=== PATIENT | female | born 1955 | race Caucasian/White ===

== ENCOUNTER 2016-09-14 06:05 | Day surgery (SDC) | payer BC ==
[~2016-09-14] VITALS: Ht 170.2 cm; Wt 117.6 kg
--- OUTSIDE RECORDS SUMMARY | 2016-09-14 06:09 | XMS REPORT | Referral Summary ---
Author Author [facility] Organization [facility] Address Unknown Phone Unavailable Care Team Providers Care Winch Operator Name Role Phone Yovany Urena Primary Care Physician [phone] Encounter VC Date(s): 06/29/16 - 06/29/16 [facility] [address] [place] [id number] Discharge Diagnosis: Keratosis, inflamed seborrheic Discharge Diagnosis: Well woman exam with routine gynecological exam Discharge Diagnosis: Elevated blood pressure reading without diagnosis of hypertension Discharge Diagnosis: Borderline hyperlipidemia Discharge Diagnosis: Borderline hyperglycemia Discharge Disposition: 01-Home or Self Care Attending Physician: Wanda Urena DO Admitting Physician: Wanda Urena DO Vital Signs Most recent to 1 oldest [Reference Range]: Temperature Tympanic 36.0 degC [36.6-38.1 degC] *LOW* (06/29/16 9:10 AM) Peripheral Pulse 89 bpm Rate [60-100 bpm] (06/29/16 9:10 AM) Blood Pressure 138/92 mmHg [90-140/60-90 mmHg] (06/29/16 9:10 AM) SpO2 98 % (06/29/16 9:10 AM) Problem List Condition Effective Dates Status Health Status Informant Elevated blood Active pressure reading without diagnosis of hypertension(Confirm ed) Borderline Active hyperglycemia(Confir med) Borderline Active hyperlipidemia(Confi rmed) Morbid Active patient obesity(Confirmed) Rosacea(Confirmed) Active Allergies, Adverse Reactions, Alerts No Known Medication Allergies Medications Flax Oil 0 Refill(s) Start Date: 05/04/16 Status: Ordered multivitamin 1 tabs, Oral, Daily Start Date: 10/23/15 Status: Ordered [place]-3 oral capsule 0 Refill(s) Start Date: 05/04/16 Status: Ordered triamcinolone 0.5% topical cream 1 yue, Topical, BID, Rash, apply to ears, # 20 g, 3 Refill(s), Pharmacy: [facility] #[id number] Start Date: 05/04/16 Stop Date: 05/04/17 Status: Ordered Vitamin C 500 mg oral tablet 1,000 mg 2 tabs, Oral, Daily Start Date: 10/23/15 Status: Ordered Results No data available for this section Immunizations No data available for this section Procedures Procedure Date Related Diagnosis Body Site Destruction (eg, laser surgery, 06/29/16 electrosurgery, cryosurgery, chemosurgery, surgical curettement), of benign lesions other than skin tags or cutaneous vascular proliferative lesions; up to 14 lesions Social History Social History Type Response Smoking Status Never smoker Assessment and Plan Extracted from: Title: Ambulatory Patient Education Author: Wanda Urena DO Date: 06/29/16 Cardiovascular Fat and Cholesterol Restricted Diet Getting too much fat and cholesterol in your diet may cause health problems. Following this diet helps keep your fat and cholesterol at normal levels. This can keep you from getting sick. WHAT TYPES OF FAT SHOULD I CHOOSE? Choose monosaturated and polyunsaturated fats. These are found in foods such as olive oil, canola oil, flaxseeds, walnuts, almonds, and seeds. Eat more omega-3 fats. Good choices include salmon, mackerel, sardines, tuna, flaxseed oil, and ground flaxseeds. Limit saturated fats. These are in animal products such as meats, butter , and cream. They can also be in plant products such as palm oil, palm kernel oil, and coconut oil. Avoid foods with partially hydrogenated oils in them. These contain trans fats. Examples of foods that have trans fats are stick margarine, some tub margarines, cookies, crackers, and other baked goods. WHAT GENERAL GUIDELINES DO I NEED TO FOLLOW? Check food labels. Look for the words "trans fat" and "saturated fat." When preparing a meal: Fill half of your plate with vegetables and green salads. Fill one fourth of your plate with whole grains. Look for the word "whole " as the first word in the ingredient list. Fill one fourth of your plate with lean protein foods. Limit fruit to two servings a day. Choose fruit instead of juice. Eat more foods with soluble fiber. Examples of foods with this type of fiber are apples, broccoli, carrots, beans, peas, and barley. Try to get 20 30 g (grams) of fiber per day. Eat more home-cooked foods. Eat less at restaurants and buffets. Limit or avoid alcohol. Limit foods high in starch and sugar. Limit fried foods. Cook foods without frying them. Baking, boiling, grilling, and broiling are all great options. Lose weight if you are overweight. Losing even a small amount of weight can help your overall health. It can also help prevent diseases such as diabetes and heart disease. WHAT FOODS CAN I EAT? Grains Whole grains, such as whole wheat or whole grain breads, crackers, cereals, and pasta. Unsweetened oatmeal, bulgur, barley, quinoa, or brown rice. [place] or whole wheat flour tortillas. Vegetables Fresh or frozen vegetables (raw, steamed, roasted, or grilled). Green salads. Fruits All fresh, canned (in natural juice), or frozen fruits. Meat and Other Protein Products Ground beef (85% or leaner), grass-fed beef, or beef trimmed of fat. Skinless chicken or turkey. Ground chicken or turkey. Pork trimmed of fat. All fish and seafood. Eggs. Dried beans, peas, or lentils. Unsalted nuts or seeds. Unsalted canned or dry beans. Dairy Low-fat dairy products, such as skim or 1% milk, 2% or reduced-fat cheeses, low- fat ricotta or cottage cheese, or plain low-fat yogurt. Fats and Oils Tub margarines without trans fats. Light or reduced-fat mayonnaise and salad dressings. Avocado. [place], canola, sesame, or safflower oils. Natural peanut or almond butter (choose ones without added sugar and oil). The items listed above may not be a complete list of recommended foods or beverages. Contact your dietitian for more options. WHAT FOODS ARE NOT RECOMMENDED? Grains White bread. White pasta. White rice. Cornbread. Bagels, pastries, and croissants. Crackers that contain trans fat. Vegetables White potatoes. [place]. Creamed or fried vegetables. Vegetables in a cheese sauce. Fruits Dried fruits. Canned fruit in light or heavy syrup. Fruit juice. Meat and Other Protein Products Fatty cuts of meat. Ribs, chicken wings, bob, sausage, bologna, salami, chitterlings, fatback, hot dogs, bratwurst, and packaged luncheon meats. Liver and organ meats. Dairy Whole or 2% milk, cream, gson-ppg-bcqd, and cream cheese. Whole milk cheeses. Whole-fat or sweetened yogurt. Full-fat cheeses. Nondairy creamers and whipped toppings. Processed cheese, cheese spreads, or cheese curds. Sweets and Desserts [place] syrup, sugars, honey, and molasses. Candy. Jam and jelly. Syrup. Sweetened cereals. Cookies, pies, cakes, donuts, muffins, and ice cream. Fats and Oils Butter, stick margarine, lard, shortening, ghee, or bob fat. Coconut, palm kernel, or palm oils. Beverages Alcohol. Sweetened drinks (such as sodas, lemonade, and fruit drinks or punches) . The items listed above may not be a complete list of foods and beverages to avoid. Contact your dietitian for more information. This information is not intended to replace advice given to you by your health care provider. Make sure you discuss any questions you have with your health care provider. Document Released: 12/06/2012 Document Revised: 06/28/2015 Document Reviewed: [employer] Interactive Patient Education 2016 [employer] No follow up information was provided. Extracted from: Title: WWE Author: Wanda Urena DO Date: 06/29/16 Assessment/Plan Borderline hyperglycemia We discussed this patient would like to utilize therapeutic lifestyle changes, she'll return to clinic any years sooner with problems. Borderline hyperlipidemia We discussed this, we discussed her ASCVD risk score at 10 years would be 6 percent. She understands the consequences of not choosing a statin at this time and would instead like to work on therapeutic lifestyle changes, recheck in 1 year. Elevated blood pressure reading without diagnosis of hypertension Continue to monitor as her blood pressure is markedly improved from last reading. Keratosis, inflamed seborrheic Risks, benefits, alternatives of cryotherapy were discussed and verbal consent was obtained. The lesion mentioned abovewas treated utilizing a contact applicator and liquid nitrogen and 3 freeze thaw cycles. Wound care was discussed. Patient tolerated procedurewell. Return to clinic as needed. Ordered: Destruction, Of Flat Warts, Molluscum Contagiosum, Or Milia; Up To 14 Lesions 30575 Screening for human papillomavirus (HPV) Ordered: HPV HR, if positive reflex HPV Genotype Well woman exam with routine gynecological exam Exam and Pap with HPV testing today, we'll advise patient of results once available. Patient declines mammogram, colonoscopy form was provided to patient today. Ordered: Periodic Comp Preventive Med 40 to 64 years Est 04360
--- OUTSIDE RECORDS SUMMARY | 2016-09-14 06:09 | XMS REPORT | Referral Summary ---
Author Author [facility] Organization [facility] Address Unknown Phone Unavailable Care Team Providers Care Night Worker Name Role Phone Yovany Urena Primary Care Physician [phone] Encounter VC Date(s): 05/04/16 - 05/04/16 [facility] [address] [place] [id number] Discharge Diagnosis: Pressure in chest Discharge Diagnosis: Jaw pain Discharge Diagnosis: Blood pressure elevated without history of HTN Discharge Diagnosis: Adult hypothyroidism Discharge Disposition: 01-Home or Self Care Attending Physician: Wanda Urena DO Admitting Physician: Wanda Urena DO Vital Signs Most recent to 1 oldest [Reference Range]: Temperature Tympanic 36.6 degC [36.6-38.1 degC] (05/04/16 10:17 AM) Peripheral Pulse 89 bpm Rate [60-100 bpm] (05/04/16 10:17 AM) Blood Pressure 164/100 mmHg [90-140/60-90 mmHg] *HI* (05/04/16 10:17 AM) SpO2 97 % (05/04/16 10:17 AM) Problem List Condition Effective Dates Status Health Status Informant Morbid Active patient obesity(Confirmed) Rosacea(Confirmed) Active Allergies, Adverse Reactions, Alerts No Known Medication Allergies Medications Flax Oil 0 Refill(s) Start Date: 05/04/16 Status: Ordered multivitamin 1 tabs, Oral, Daily Start Date: 10/23/15 Status: Ordered [place]-3 oral capsule 0 Refill(s) Start Date: 05/04/16 Status: Ordered triamcinolone 0.5% topical cream 1 yue, Topical, BID, Rash, apply to ears, # 20 g, 3 Refill(s), Pharmacy: [facility] #[id number] Start Date: 05/04/16 Stop Date: 05/04/17 Status: Ordered Vitamin C 500 mg oral tablet 1,000 mg 2 tabs, Oral, Daily Start Date: 10/23/15 Status: Ordered Results No data available for this section Immunizations No data available for this section Procedures No data available for this section Social History Social History Type Response Smoking Status Never smoker Assessment and Plan Extracted from: Title: Office Visit Note Author: Wanda Urena DO Date: 05/04/16 Assessment/Plan Adult hypothyroidism TSH prior to next visit with further recommendations after results. This will have to be drawn at [facility] as patient must use [facility]. Ordered: Office Visit Level 4 Est 56923 Blood pressure elevated without history of HTN Recheck blood pressure was 160/92. Patient will return to clinic in 4-6 weeks for well woman exam and we will reevaluate at that time. Ordered: Office Visit Level 4 Est 32120 Jaw pain We will get a CMP with lab work to evaluate calcium, we discussed the possibility of TMJ, further recommendations after lab results. Ordered: Office Visit Level 4 Est 22439 Pressure in chest EKG was within normal limits, we discussed cardiology referral for further testing and patient will think about this. Ordered: Office Visit Level 4 Est 17662
[2016-09-14 06:19] VITALS: Ht 170.2 cm; Wt 117.6 kg
[2016-09-14 06:20] VITALS: BP 188/99; PULSE 79; RESP 16; TEMP 97.8; O2SAT 95
[2016-09-14 06:38] VITALS: BP 180/81
[2016-09-14] MEDS ORDERED: LIDOCAINE 1% (10mg/ml) 2ml SDV INJ ONE (07:00)
[2016-09-14] MEDS ORDERED: LR 1,000 ML IV SCH (07:00)
--- NOTE | 2016-09-14 07:26 | ANESPREOP ---
Anesthesia Record Date and Time DATE: 09/14/16 TIME: 07:24 Pre-Op Diagnosis hx of polyps Proposed Surgical Procedure COLONOSCOPY Allergies: Coded Allergies: No Known Drug Allergies (Verified Allergy, Unknown, 09/14/16) Ht/Wt/BMI Height: 5 ' 7.00 " Weight: 117.600 kg BMI: 40.6 kg/m2 Vital Signs Date Time Temp Pulse Resp B/P Pulse Ox O2 Delivery O2 Flow Rate FiO2 09/14/16 06:38 180/81 09/14/16 06:20 97.8 79 16 95 Room Air Medications Inpatient Medications Current Medications Medications (Trade) Dose Ordered Sig/Renae Start Time Stop Time Status Last Admin Dose Admin Lactated Ringer's (Lactated Ringers) 1,000 ml @ 50 mls/hr Q20H 09/14/16 07:00 09/14/16 06:35 50 MLS/HR No Active Prescriptions or Reported Meds Currently on Beta Jamarcus: No Medical/Surgical History Anesthesia PMH: Reports: Obesity, Thyroid Disease (NOT ON MEDS-HYPO), Denies: * Diabetes, Anesthesia Reactions (NO AIRWAY ISSUES), Arthritis, Cancer, Clotting Problems, Glaucoma, Malignant Hyperthermia, Renal Disease, Sleep Apnea Smoking Status: Never smoker Has pt. smoked today?: No Use Chewing Tobacco?: No Second Hand Exposure: No Substance Use Type: does not use Substance last used: unknown Alcohol Intake: none Last Drink: unknown HX of Last Menstrual Period: AGE 48 Past Surgical History Orthopedic Surgeries: Abdominal Surgeries: Genitourinary Surgeries: Cardiac Surgeries: Endocrine Surgeries: Reproductive Surgeries: Yes - L OOPHERECTOMY/LEFT BREAST BIOPSY Neurological Surgeries: Ear Surgeries: Nose Surgeries: Throat Surgeries: Other Surgeries: Anesthesia Adverse Reactions: FOUND none Family Hx of Anesthesia Advers: none Hx of Motion Sickness: Yes Pertinent Findings EKG Rhythm: Sinus Rhythm Physical Exam Respiratory: Bilat breath sounds equal, Lungs clear Cardiovascular: FOUND Regular rate, rhythm, FOUND No murmur Airway Assessment Mallampati Score: I TMD: 3 Fingerbreadths Neck Extension: Fair Overall Assessment: May Be Diff Mask Vent., May Be Diff Intubation ASA: 2 Plan Anesthesia Plan: TIVA Discussion Discussed risks/options/alternatives of anesthesia and questions answered. Patient consents. Nursing pain assessment noted. Present: Spouse Attestation Statement Prior to the delivery of any anesthetic medication, I examined the patient, developed the plan, obtained the patient's consent and discussed the risk and benefits of the procedure with the patient/guardian. GORDON CAMPOVERDE CRNA Sep 14, 2016 07:26
[2016-09-14] MEDS ORDERED: PROPOFOL 500mg 50 ML IV ONE (07:34)
[2016-09-14] MEDS ORDERED: LIDOCAINE 1% (10mg/ml) 2ml SDV ONE (07:34)
[2016-09-14] MEDS ORDERED: PROPOFOL 200mg 20 ML IV ONE (08:16)
[2016-09-14 08:19] VITALS: BP 147/99; PULSE 67; RESP 16; TEMP 97.2; O2SAT 94
[2016-09-14 08:34] VITALS: BP 168/80; PULSE 60; RESP 20; O2SAT 92
[2016-09-14 08:45] VITALS: BP 173/81; PULSE 73; RESP 17; O2SAT 94
--- NOTE | 2016-09-14 09:15 | ANESPO ---
Post-Op Note Date 09/14/16 Time: 09:14 Status Pt Participated in Evaluation: Pt participated in person Vital Signs Date Time Temp Pulse Resp B/P Pulse Ox O2 Delivery O2 Flow Rate FiO2 09/14/16 08:45 73 17 173/81 94 Room Air 09/14/16 08:19 97.2 Respiratory Function: Airway patent, Regular respirations Cardiovascular Function: Regular pulse Mental Status: Alert/oriented Pain Level Intensity: 0 Unable to Assess Pain Due To: Medicated/Sleeping Hydration: Taking po fluids Complications during Recovery None apparent Post-Anesthesia Notes [email or web address] Follow-Up Instructions Instructions Per Surgeon Additional Information none GORDON CAMPOVERDE CRNA Sep 14, 2016 09:15
--- NOTE | 2016-09-14 10:26 | OPNOTEF ---
DATE OF SERVICE 09/14/2016 SURGEON Zoltan Carreon MD PREOPERATIVE DIAGNOSIS Personal history of adenomatous colon polyps, family history for colon cancer. POSTOPERATIVE DIAGNOSIS Personal history of adenomatous colon polyps, family history for colon cancer, colonic polyps located at 25 cm, 35 cm, 60 cm, and cecum. Sigmoid diverticulosis. PROCEDURE Colonoscopy with polypectomies via cold biopsy technique and snare polypectomy technique. ANESTHESIA TIVA BRIEF HISTORY/INDICATIONS Mrs. Rene is a 61-year-old female who has a personal history for adenomatous colon polyps in the past as well as a family history for colon cancer within a first-degree relative. As a result of the above indications it was recommended to the patient she undergo a colonoscopy. For completeness please refer to notes included in the patient's chart. FINDINGS Upon colonoscopy the patient was found to have a moderate number of diverticula within the sigmoid colon region. She was found to have several polyps that ranged on the order from about 5 mm up to perhaps 1.5 cm in diameter. Each polyp was removed in its entirety via snare polypectomy technique or a cold biopsy technique. The patient was found to have a moderate number of diverticula within the sigmoid colon region. There was no evidence for angiodysplastic lesions or jenna malignancies. DESCRIPTION OF PROCEDURE After informed consent was obtained, the patient was brought to the endoscopy suite and placed on the table in left lateral decubitus position. The patient subsequently underwent total intravenous anesthesia by the nurse inspector integrated circuits per my request. Formal time-out was then completed. Next, a digital rectal examination was performed. Normal sphincter tone. No rectal masses were appreciated. An Olympus colonoscope was inserted in the anus and advanced through the lumen of the colon under direct visualization at all times until the cecum was ascertained. Triangulation of teniae coli, ileocecal valve and appendiceal lumen were all visualized. Within the cecum, the patient was found to have a polyp on the order of about 5-6 mm in diameter. This polyp was grasped and removed in its entirety via cold biopsy technique and submitted for pathologic evaluation. Scope was then continued to be slowly withdrawn. At 60 cm from the anal verge, the patient was found to have a larger polyp that was on the order of about 1.5 cm in diameter. Snare was placed around the polyp and the polyp was transected in its entirety. Polyp was pedunculated in nature. One could still see a small portion of the base of the polyp after the main portion of the polyp had been transected. Additional portion at the base was also additionally transected via snare polypectomy technique. The base portion was able to be suctioned into a colonic trap and submitted for pathologic evaluation. The polyp itself was large enough that it could not be suctioned into the colonoscope but was suctioned against the colonoscope and the colonoscope was then withdrawn and the polyp was then submitted. Scope was then re-advanced through the anus and advanced past 60 cm up to about 70-80 cm from the anal verge. Scope was then slowly withdrawn where two additional polyps were identified at 25 and 35 cm from the anal verge. These polyps were fairly small, and on the order of about 5-6 mm in diameter and removed in their entirety via cold biopsy technique. Scope was then continued to be withdrawn until it was brought forth back to the rectal vault. J-maneuver was then performed. No worrisome perianal pathology was noted. Scope was allowed to straighten and withdrawn through the anal verge. The patient tolerated the procedure without difficulty and was sent back to the preop area in stable condition. JAKE
== END 2016-09-14 09:05 | disposition home or self-care (01) ==
LOC: NSC 06:05
PROVIDERS: ATTEND Surgery
DX: Z12.11 Encounter for screening for malignant neoplasm of colon (principal); D12.6 Benign neoplasm of colon, unspecified; Z86.010 Personal history of colon polyps; Z80.0 Family history of malignant neoplasm of digestive organs; K57.30 Diverticulosis of large intestine without perforation or abscess without bleeding; Z79.899 Other long term (current) drug therapy
CPT/HCPCS: 45380; 45385; J2704; J7120